=== PATIENT | female | born 1945 | race Hispanic/Latino ===

== ENCOUNTER 2020-08-20 08:39 | Emergency (ER) | payer MEDICARE ==
--- NOTE | 2020-08-20 09:02 | Emergency Department Report ---
ED CPR HPI - General Chief Complaint: Cardiac Arrest/CPR Stated Complaint: CA Time Seen by Provider: 08/20/20 08:58 - History of Present Illness Initial Comments: 75-year-old female, history of diabetes, presents to ED in cardiac arrest. Witnessed arrest by family. No CPR administered by family. EMS reports initial rhythm of asystole upon arrival. Patient intubated by medics. She has received epi x2. She presents in continued arrest. EMS reports patient down now for approximately 30 minutes. MD Complaint: stopped breathing -: minute(s) (30) Place: home Bystander CPR Performed: No Shock Advised: No Initial Findings in the Field: unresponsive, no respirations, no pulse ROSC in the Field: No Treatments Prior to Arrival: intubation, chest compressions, epinephrine mgs # (2) ED Review of Systems ROS: Stated complaint: CA Other details as noted in HPI Comment: Unobtainable due to pts medical conditions ED Physical Exam - Head Head exam: Present: atraumatic, normocephalic - ENT ENT exam: Present: mucous membranes moist - Neck Neck exam: Present: normal inspection - Respiratory Respiratory exam: Present: other (No spontaneous respirations) - Cardiovascular Cardiovascular Exam: Present: other (No palpable pulse) - GI/Abdominal GI/Abdominal exam: Present: soft. Absent: distended - Extremities Exam Extremities exam: Present: normal inspection - Neurological Exam Neurological exam: Present: other (GCS-3) - Skin Skin exam: Present: warm, dry, intact, normal color ED Medical Decision Making - Medical Decision Making 75-year-old female arrived to ED in cardiac arrest. ACLS protocol was followed while here in the ED. Unfortunately, no return of spontaneous circulation. Time of was called at 8:39 AM. Family notified. Critical care attestation.: If time is entered above; I have spent that time in minutes in the direct care of this critically ill patient, excluding procedure time. ED Disposition Clinical Impression: Cardiac arrest Disposition: DC-20 Is pt being admited?: No Condition: Stable Referrals: PRIMARY CARE [Primary Care Provider] - 3-5 Days Time of Disposition: 09:02
== END 2020-08-20 09:00 ==
LOC: ED 08:39
DX: I46.9 Cardiac arrest, cause unspecified (principal)